=== PATIENT | male | born 1975 | race Hispanic/Latino ===

== ENCOUNTER 2020-04-24 22:35 | Emergency (ER) | payer BC, SELFPAY ==
[2020-04-24 22:37] VITALS: BP 152/90; PULSE 90; RESP 18; TEMP 36.7; O2SAT 98
--- NOTE | 2020-04-24 22:40 | ED.WOUNDLAC ---
HPI - Wound/Laceration General Chief Complaint: Wound/Laceration Stated Complaint: dog bite Time Seen by Provider: 04/24/20 22:40 History of Present Illness HPI narrative: Dog bit to left wrist this evening. Mild pain with thumb extension. small laceration over anterior wrist. Unsure of last tetanus shot. Related Data Allergies Allergy/AdvReac Type Severity Reaction Status Date / Time No Known Allergies Allergy Mild Verified 01/27/10 10:15 Review of Systems Review of Systems: All systems reviewed & are unremarkable except as noted in HPI and below Exam Const: General: healthy appearing, no acute distress and alert Orientation/consciousness: patient oriented x3 HENMT: Head: normal to inspection Cardio: Other: 2+ left radial pulse Skin: General skin exam: normal color Wounds: wounds noted (2 cm laceration to left wrist without involvement of deep structures) Neuro: General: patient oriented x3 and moves all extremities Speech: normal speech Course Vital Signs Vital signs: Vital Signs Temperature 36.7 C 04/24/20 22:37 Pulse Rate 90 04/24/20 22:37 Respiratory Rate 18 04/24/20 22:37 Blood Pressure 152/90 H 04/24/20 22:37 Pulse Oximetry 98 04/24/20 22:37 Temperature 36.7 C 04/24/20 22:37 Pulse Rate 77 04/24/20 23:53 Respiratory Rate 18 04/24/20 23:53 Blood Pressure 140/64 04/24/20 23:53 Pulse Oximetry 99 04/24/20 23:53 Discharge Plan Discharge Clinical Impression: Dog bite Patient Disposition: Home, Self-Care Condition: Stable Instructions: Animal Bite (ED) Prescriptions: New amoxicillin-pot clavulanate [Augmentin] 875-125 mg tablet 1 tablet PO Q12H Qty: 10 RF: 0 amoxicillin-pot clavulanate [Augmentin] 875-125 mg tablet 1 tablet PO Q12H Qty: 10 RF: 0 Follow-up/Referrals: Kenn Jiang MD [Physician] - PHYSICIAN,INTERNATIONAL ACCOUNT MANAGER [Non-Staff] - Discharge Date/Time: 04/24/20 23:54
[2020-04-24] MEDS: AMOXICILLIN/CLAVULANATE K 875-125 MG TAB 1 TABLET PO (23:22)
[2020-04-24] MEDS: TETANUS,DIPHTHERIA,AC PERTUSSIS ADULT (0.5 ML) BOOSTRIX IM (23:23)
[2020-04-24 23:53] VITALS: BP 140/64; PULSE 77; RESP 18; O2SAT 99
== END 2020-04-24 23:54 | disposition home or self-care (01) ==
PROVIDERS: Emergency Provider Emergency Medicine; PCP Internal Medicine Gastroenterology
DX: S61.552A Open bite of left wrist, initial encounter (principal); W54.0XXA Bitten by dog, initial encounter; Z23 Encounter for immunization
CPT/HCPCS: 90471; 90715; 99283; A9270